=== PATIENT | male | born 1970 | race Caucasian/White ===

== ENCOUNTER 2018-05-31 18:43 | Emergency (ER) | payer BC ==
--- NOTE | 2018-05-31 19:33 | EDM.PDOC ---
ED HPI GENERAL MEDICAL PROBLEM - General Chief Complaint: Respiratory Problem Stated Complaint: SOB Time Seen by Provider: 05/31/18 18:58 Source of Information: Reports: Patient History Limitations: Reports: No Limitations - History of Present Illness INITIAL COMMENTS - FREE TEXT/NARRATIVE: The patient states that he developed dyspnea on exertion, but none at rest, along with orthopnea, this past , 05/27/2018. No recent cough or fever. No recent chest pain or palpitations. No recent lower extremity swelling or injury. No history of coagulopathy. The patient drives to and from [place], but no recent plane travel. 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 At the time, he was diagnosed with hypertension and started on 3 antihypertensive medications that include lisinopril and to others that the patient does not recall the names of. He states that he was off those medications this past March and April, but restarted it early May, and has continued to take them since. Here in the ED, we note that the patient's initial BP is elevated at 193/127. He is not tachycardic or febrile. His oxygen saturation is 96% on room air, and he states that he is comfortable. Without treatment, his blood pressure has declined somewhat. The patient's PCP is in [place], [place]. - Related Data Allergies Allergy/AdvReac Type Severity Reaction Status Date / Time No Known Allergies Allergy Verified 05/31/18 18:57 Home Meds: Home Meds . [Unable to Verify Home Med List] 05/31/18 [History] Past Medical History HEENT History: Reports: Impaired Vision Cardiovascular History: Reports: Hypertension Endocrine/Metabolic History: Reports: Obesity/BMI 30+ Social & Family History - Tobacco Use Smoking Status *Q: Never Smoker Tobacco Use Within Last Twelve Months: Smokeless Tobacco (Chews 1 can/day x 32 years) Years of Tobacco use: 30 Packs/Tins Daily: 1 - Caffeine Use Caffeine Use: Reports: Soda - Alcohol Use Alcohol Use History: Yes Alcohol Use Frequency: Rarely - Recreational Drug Use Recreational Drug Use: Yes Drug Use in Last 12 Months: No Recreational Drug Type: Reports: Cocaine (last snorted 2015) - Living Situation & Occupation Living situation: Reports: Single, with Family (Nephew) Occupation: Employed (Construction - concrete) ED ROS GENERAL - Review of Systems Review Of Systems: ROS reveals no pertinent complaints other than HPI. ED EXAM, GENERAL - Physical Exam Exam: See Below Exam Limited By: No Limitations General Appearance: Alert, WD/WN, No Apparent Distress Eye Exam: Bilateral Eye: EOMI, Normal Inspection Ears: Normal External Exam, Hearing Grossly Normal Nose: Normal Inspection, No Blood Throat/Mouth: Normal Inspection, Normal Lips, Normal Voice, No Airway Compromise Head: Atraumatic, Normocephalic Neck: Normal Inspection, Full Range of Motion Respiratory/Chest: No Respiratory Distress, Lungs Clear, Normal Breath Sounds, No Accessory Muscle Use. No: Crackles, Rhonchi, Wheezing Cardiovascular: Normal Peripheral Pulses, Regular Rate, Rhythm, No Edema, No Gallop, No JVD, No Murmur, No Rub Peripheral Pulses: 4+: Radial (L), Radial (R) GI/Abdominal: Normal Bowel Sounds, Soft, Non-Tender, No Organomegaly, No Distention, No Abnormal Bruit, No Mass, Other (Obese) (Male) Exam: Deferred Rectal (Males) Exam: Deferred Back Exam: Normal Inspection, Full Range of Motion, NT Extremities: Normal Inspection, Normal Range of Motion, No Pedal Edema, Normal Capillary Refill Neurological: Alert, Oriented, Normal Cognition, No Motor/Sensory Deficits Psychiatric: Normal Affect Skin Exam: Warm, Dry, Intact, Normal Color, No Rash EKG INTERPRETATION EKG Date: 05/31/18 Time: 19:43 Rhythm: NSR Rate (Beats/Min): 84 Adrian: Normal P-Wave: Enlarged (LAE) QRS: Normal (+LVH) ST-T: Other (ST depression and T-wave inversion V5, V6. J-point elevation in anterior leads.) QT: Normal Comparison: NA - No Prior EKG Course - Vital Signs Last Recorded V/S: Last Vital Signs Temp 37.3 C 05/31/18 18:51 Pulse 95 05/31/18 18:51 Resp 15 05/31/18 18:51 BP 193/127 H 05/31/18 18:51 Pulse Ox 96 05/31/18 18:51 - Orders/Labs/Meds Orders: Active Orders 24 hr Category Date Time Status EKG Documentation Completion [RC] STAT Care 05/31/18 19:29 Active Chest 2V [CR] Stat Exams 05/31/18 19:29 Taken Potassium Chloride [Klor-Con M20] Med 05/31/18 20:42 Once 20 meq PO ONETIME ONE Labs: Laboratory Tests 05/31/18 05/31/18 05/31/18 Range/Units 19:00 19:00 19:00 WBC 12.06 H (4.23-9.07) K/mm3 RBC 4.93 (4.63-6.08) M/mm3 Hgb 14.2 (13.7-17.5) gm/L Hct 42.3 (40.1-51.0) % MCV 85.8 (79.0-92.2) fl MCH 28.8 (25.7-32.2) pg MCHC 33.6 (32.2-35.5) g/dl RDW Std Deviation 41.0 (35.1-43.9) fL Plt Count 235 (163-337) K/mm3 MPV 10.4 (9.4-12.3) fl Neutrophils % (Manual) 69 H (40-60) % Band Neutrophils % 0 (0-10) % Lymphocytes % (Manual) 24 (20-40) % Atypical Lymphs % 0 % Monocytes % (Manual) 5 (2-10) % Eosinophils % (Manual) 0 L (0.8-7.0) % Basophils % (Manual) 2 H (0.2-1.2) Platelet Estimate Adequate Plt Morphology Comment Normal RBC Morph Comment Normal PT 11.7 (9.5-12.1) SECONDS INR 1.07 APTT 30 (24-31) SECONDS D-Dimer, Quantitative 0.38 (0.19-0.50) mg/L Puncture Site ABG pH (7.35-7.45) ABG pCO2 (35.0-45.0) mmHg ABG pO2 (80.0-100.0) mmHg ABG HCO3 (22.0-26.0) meq/L ABG O2 Saturation (96.0-97.0) % ABG Base Excess (-2-2.0) A-a Gradient mmHg O2 Delivery Device FiO2 (21.00-100.00) % Sodium 141 (136-145) mEq/L Potassium 3.1 L (3.5-5.1) mEq/L Chloride 106 (98-107) mEq/L Carbon Dioxide 23 (21-32) mEq/L Anion Gap 15.1 H (5-15) BUN 26 H (7-18) mg/dL Creatinine 1.9 H (0.7-1.3) mg/dL Est Cr Clr Drug Dosing 51.05 mL/min Estimated GFR (MDRD) 38 (>60) mL/min BUN/Creatinine Ratio 13.7 L (14-18) Glucose 187 H (74-106) mg/dL Calcium 8.5 (8.5-10.1) mg/dL Total Bilirubin 1.6 H (0.2-1.0) mg/dL AST 48 H (15-37) U/L ALT 77 H (16-63) U/L Alkaline Phosphatase 103 (46-116) U/L Troponin I 0.105 H* (0.00-0.056) ng/mL NT-Pro-B Natriuret Pep (0-125) pg/mL Total Protein 7.2 (6.4-8.2) g/dl Albumin 3.2 L (3.4-5.0) g/dl Globulin 4.0 gm/dL Albumin/Globulin Ratio 0.8 L (1-2) 05/31/18 05/31/18 Range/Units 19:00 19:53 WBC (4.23-9.07) K/mm3 RBC (4.63-6.08) M/mm3 Hgb (13.7-17.5) gm/L Hct (40.1-51.0) % MCV (79.0-92.2) fl MCH (25.7-32.2) pg MCHC (32.2-35.5) g/dl RDW Std Deviation (35.1-43.9) fL Plt Count (163-337) K/mm3 MPV (9.4-12.3) fl Neutrophils % (Manual) (40-60) % Band Neutrophils % (0-10) % Lymphocytes % (Manual) (20-40) % Atypical Lymphs % % Monocytes % (Manual) (2-10) % Eosinophils % (Manual) (0.8-7.0) % Basophils % (Manual) (0.2-1.2) Platelet Estimate Plt Morphology Comment RBC Morph Comment PT (9.5-12.1) SECONDS INR APTT (24-31) SECONDS D-Dimer, Quantitative (0.19-0.50) mg/L Puncture Site Rt radial ABG pH 7.43 (7.35-7.45) ABG pCO2 34.3 L (35.0-45.0) mmHg ABG pO2 74.0 L (80.0-100.0) mmHg ABG HCO3 22.5 (22.0-26.0) meq/L ABG O2 Saturation 96.0 (96.0-97.0) % ABG Base Excess -0.7 (-2-2.0) A-a Gradient 18 mmHg O2 Delivery Device Room air FiO2 0.00 L (21.00-100.00) % Sodium (136-145) mEq/L Potassium (3.5-5.1) mEq/L Chloride (98-107) mEq/L Carbon Dioxide (21-32) mEq/L Anion Gap (5-15) BUN (7-18) mg/dL Creatinine (0.7-1.3) mg/dL Est Cr Clr Drug Dosing mL/min Estimated GFR (MDRD) (>60) mL/min BUN/Creatinine Ratio (14-18) Glucose (74-106) mg/dL Calcium (8.5-10.1) mg/dL Total Bilirubin (0.2-1.0) mg/dL AST (15-37) U/L ALT (16-63) U/L Alkaline Phosphatase (46-116) U/L Troponin I (0.00-0.056) ng/mL NT-Pro-B Natriuret Pep 3328 H (0-125) pg/mL Total Protein (6.4-8.2) g/dl Albumin (3.4-5.0) g/dl Globulin gm/dL Albumin/Globulin Ratio (1-2) Meds: Medications Discontinued Medications Generic Name Dose Route Start Last Admin Trade Name Freq PRN Reason Stop Dose Admin Aspirin 324 mg 05/31/18 20:36 Aspirin PO 05/31/18 20:37 ONETIME STA Metoprolol Tartrate 5 mg 05/31/18 20:37 Lopressor IVPUSH 05/31/18 20:38 ONETIME ONE - Re-Assessments/Exams Free Text/Narrative Re-Assessment/Exam: 05/31/18 19:31 The patient's history of dyspnea on exertion and orthopnea are most concerning for CHF and a PE. I have ordered a chest radiograph, BNP, and D-dimer. Less likely would be pneumonia, as the patient has no history of cough or fever, or pulmonary fibrosis, as his oxygen saturation here in the ED is 96% on room air. Restrictive pericarditis would be on the differential, but would require an echocardiogram to diagnose. For today's purposes, I have ordered a troponin, ECG , and ABG, in addition to some other tests. 05/31/18 20:17 2-view chest radiograph reviewed. There is cardiomegaly and mild pulmonary vascular congestion, but no pleural effusions to suggest decompensated CHF. No focal infiltrate. No pneumothorax. Formal read per the Radiologist pending. 05/31/18 20:38 Test results discussed with the patient. Both the patient's troponin and BNP are modestly elevated, however, so is his BUN/Cr. His ECG does not show any ischemic changes, but does demonstrate LVH, consistent with his history of hypertension. His chest radiograph shows cardiomegaly with mild pulmonary vascular congestion, likely the cause of his presenting symptoms. I recommended transfer to [facility] for further evaluation, which will likely include a nonemergent coronary angiogram. The patient has agreed. In the meantime, I have ordered 4 baby aspirin, 5 mg of IV Lopressor, which will be repeated, and 20 mEq oral potassium to treat his potassium of 3.1. 05/31/18 20:[address] Steinberg, Hospitalist at [facility], at 20:46. She accepts the patient for direct admission. She would like us to give Lasix before transfer. The chest x-ray images were pushed to [facility] at 20:51. Departure - Departure Time of Disposition: 20:50 Disposition: DC/Tfer to Acute Hospital 02 Condition: Fair Clinical Impression: New onset of congestive heart failure, Elevated troponin, Uncontrolled hypertension, Hypokalemia, Acute kidney injury, Hyperglycemia - Discharge Information Referrals: PCP,None [Primary Care Provider] - Forms: ED Department Discharge - My Orders Last 24 Hours: My Active Orders 05/31/18 19:29 EKG Documentation Completion [RC] STAT Chest 2V [CR] Stat 05/31/18 20:42 Potassium Chloride [Klor-Con M20] 20 meq PO ONETIME ONE - Assessment/Plan Last 24 Hours: My Active Orders 05/31/18 19:29 EKG Documentation Completion [RC] STAT Chest 2V [CR] Stat 05/31/18 20:42 Potassium Chloride [Klor-Con M20] 20 meq PO ONETIME ONE
[2018-05-31] MEDS ORDERED: Aspirin 81 MG Tab.Chew PO STA (20:36)
[2018-05-31] MEDS ORDERED: Metoprolol Tartrate 5 MG/5 ML SDV IVPUSH ONE ×2 (20:37→22:06)
[2018-05-31] MEDS ORDERED: Potassium Chloride 20 MEQ Tab.ER PO ONE (20:42)
[2018-05-31] MEDS ORDERED: Furosemide 40 MG/4 ML VIAL IVPUSH ONE (20:51)
--- NOTE | 2018-06-01 07:21 | CR ---
Chest: Two views of the chest were obtained. Comparison: No prior chest x-ray. Heart is enlarged. Upper mediastinum is normal. Pulmonary vessels are felt to be minimally congested. Lungs otherwise are clear. Bony structures are grossly intact. Impression: 1. Cardiomegaly with minimal pulmonary vascular congestion. Diagnostic code #3
== END 2018-05-31 22:15 ==
LOC: JD.ED 18:43
DX: I11.0 Hypertensive heart disease with heart failure (principal); I50.9 Heart failure, unspecified; R79.89 Other specified abnormal findings of blood chemistry; E87.6 Hypokalemia; N17.9 Acute kidney failure, unspecified; R73.9 Hyperglycemia, unspecified; F17.290 Nicotine dependence, other tobacco product, uncomplicated
CPT/HCPCS: 36415; 36600; 71046; 80053; 82803; 83880; 84484; 85007; 85027; 85379; 85610; 85730; 93005; 96374; 96375; 96376; 99285; A9270; J1940; J3490; 93010